=== PATIENT | male | born 1985 | race Two or more races ===

== ENCOUNTER 2019-10-14 10:22 | Emergency (ER) | payer MEDICAID ==
[~2019-10-14] VITALS: Ht 180.3 cm; Wt 62.3 kg
[2019-10-14 10:33] VITALS: BP 119/73
[2019-10-14] MEDS ORDERED: FAMOTIDINE 20 MG TABLET PO ONE (11:30)
[2019-10-14] MEDS ORDERED: DIPHENHYDRAMINE 25 MG CAPSULE PO ONE (11:30)
--- NOTE | 2019-10-14 11:32 | NUR ---
PT TO RM FROM LOBBY
[2019-10-14] MEDS ORDERED: FAMOTIDINE 20 MG TABLET ONE (11:56)
[2019-10-14] MEDS ORDERED: DIPHENHYDRAMINE 50 MG CAPSULE ONE (11:56)
--- NOTE | 2019-10-14 12:05 | NUR ---
PT MEDICATED FOR RASH PER ORDERS. ERMD AT BEDSIDE FOR ASSESSMENT.
--- NOTE | 2019-10-14 12:07 | NUR ---
REPORT GIVEN TO JOI LEWIS.
--- NOTE | 2019-10-14 12:09 | NUR ---
Pt resting in room.
--- NOTE | 2019-10-14 12:40 | NUR ---
Patient/Caregiver given discharge instructions and they have confirmed that they understand the instructions. Patient ambulatory with steady gait.
== END 2019-10-14 12:42 | disposition home or self-care (01) ==
LOC: ED 11:23
DX: T78.40XA Allergy, unspecified, initial encounter (principal); X58.XXXA Exposure to other specified factors, initial encounter
CPT/HCPCS: 99284; J7512; Q0163

== ENCOUNTER 2019-12-17 16:06 | Emergency (ER) | payer MEDICAID ==
[~2019-12-17] VITALS: Ht 182.9 cm; Wt 63.6 kg
[2019-12-17 17:05] VITALS: BP 133/87
--- NOTE | 2019-12-17 18:34 | NUR ---
pt ambulatory at discharge. stable. verbalized understanding of discharge instructions.
== END 2019-12-17 18:35 | disposition home or self-care (01) ==
LOC: ED 16:30
DX: S22.31XA Fracture of one rib, right side, initial encounter for closed fracture (principal); R00.0 Tachycardia, unspecified; F17.210 Nicotine dependence, cigarettes, uncomplicated; Y04.0XXA Assault by unarmed brawl or fight, initial encounter; Y93.89 Activity, other specified; Y92.89 Other specified places as the place of occurrence of the external cause; Y99.8 Other external cause status
CPT/HCPCS: 99283